=== PATIENT | female | born 1965 | race Caucasian/White ===

== ENCOUNTER 2017-02-03 22:38 | Emergency (ER) | payer SELFPAY ==
[~2017-02-03] VITALS: Ht 157.5 cm; Wt 59.0 kg
[~2017-02-03 22:38] MED LIST: ALBU17AE3 IH; AMLO5TAB4 PO; AMOX500C2 PO; AMOX500T2 PO; CEFU250T11 PO; DOXY100C2 PO; HYDR1TAB PO; NAPR220T76; POLY10DR OD; PRD20T PO; TRAM-21 PO; TRM50T PO; [UNRECOGNIZED DRUG - CODE]; [UNRECOGNIZED DRUG - REMARK]
--- NOTE | 2017-02-03 23:15 | ED Lower Extremity ---
General Chief Complaint: Lower Extremity Stated Complaint: L BIG TOE POSS INFECT Nursing Triage Note: Stated she came the other day to have back and toe looked at but left due to wait. States she believes she had a bug bite to left great toe that is now infected. States she has had MRSA in past. Also wants bump in middle of foot looked at. And is now saying that her lower back is keeping her from sleeping Nursing Sepsis Screen: No Definite Risk Source: patient Exam Limitations: no limitations History of Present Illness Time seen by provider: 23:08 Initial Comments Patient presents with a left great toe superficial red irritated infected spot that has come up over the last 2 days progressively gotten worse. She has had no fevers or chills or nausea or vomiting. She has no problems walking or numbness or tingling in her foot or toe. She states that ankle is a little swollen. She has had a MRSA infection in the past and is worried that she may be getting another one. She is been cleaning the site with alcohol and soap and water and applying new skin over it as well as a Band-Aid. Allergies and Home Medications Allergies Coded Allergies: sulfamethoxazole (Unverified Allergy, Mild, 05/10/09) trimethoprim (Unverified Allergy, Mild, 05/10/09) Uncoded Allergies: NKDA (Allergy, Mild, 03/27/09) Constitutional: No chills, No fever, No malaise Respiratory: No short of breath, No wheezing Cardiovascular: No chest pain, No syncope Musculoskeletal: No joint pain, No joint swelling, No muscle pain Skin: see HPI, lesions (scaly, pink, with thin discharge) Past Mygtmfx-Sxwcsq-Elfitw Hx Patient Social History Alcohol Use: Denies Use Recreational Drug Use: No Smoking Status: Current Everyday Smoker Recent Foreign Travel: No Contact w/Someone Who Travel: No Recent Infectious Disease Expo: No Recent Hopitalizations: Yes Immunizations Up To Date Tetanus Booster (TDap): Less than 5yrs Surgeries HX Surgeries: Yes (HH REPAIR,HYST) Surgeries: Hysterectomy Respiratory Hx Respiratory Disorders: No Cardiovascular Hx Cardiac Disorders: No Neurological Hx Neurological Disorders: Yes (TINGLING ARMS AND FINGERS OCC.) Reproductive System Hx Reproductive Disorders: Yes (MISCARRIAGE OF TWINS) Genitourinary Hx Genitourinary Disorders: No Gastrointestinal Hx Gastrointestinal Disorders: Yes Gastrointestinal Disorders: Irritable Bowel Musculoskeletal Hx 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) Endocrine Hx Endocrine Disorders: No HEENT HX ENT Disorders: No Cancer Hx Cancer: No Psychosocial Hx Psychiatric Problems: Yes Behavioral Health Disorders: Anxiety, Depression Blood Transfusions Hx Blood Disorders: No Physical Exam Vital Signs Vital Sign - Last 12Hours 02/03/17 22:45 Temp 97.9 Pulse 96 Resp 18 B/P (MAP) 156/107 Pulse Ox 96 Capillary Refill : Less Than 3 Seconds General Appearance: WD/WN, no apparent distress HEENT: PERRL/EOMI Cardiovascular: normal peripheral pulses, regular rate, rhythm, no edema Respiratory: lungs clear, normal breath sounds Feet: right foot non-tender, right foot normal inspection, right foot normal range of motion, right foot no evidence of injury, left foot infection (1 cm round superficial non-indurated no area of fluctuance without any drainage scaly lesion on the left toe consistent with a healing wound), left foot soft tissue tenderness Neurologic/Tendon: normal sensation, normal motor functions, normal tendon functions, responds to pain Neurologic/Psychiatric: alert, normal mood/affect, oriented x 3 Skin: normal color, warm/dry (no erythema, swelling or induration around the wound of the left great toe) Progress/Results/Core Measures Results/Orders Vital Signs/I&O Vital Sign - Last 12Hours 02/03/17 22:45 Temp 97.9 Pulse 96 Resp 18 B/P (MAP) 156/107 Pulse Ox 96 Blood Pressure Mean: 123 Progress Note : Time: 23:19 Progress Note The patient has a very superficial wound for the past 2 days for her left great toe without any induration or limitations or involvement of her joints or bony structure. Patient denies diabetes. She has been doing okay care for and proper care instructions have been given and she would be allowed to go home. If it gets worse then she may benefit from antibiotics and can follow up with her primary care physician or return here. Departure Impression Impression: Primary Impression: Skin lesion, infected Disposition: 01 HOME, SELF-CARE Condition: Stable Departure-Patient Inst. Decision time for Depature: 23:13 Referrals: [facility] (PCP) Primary Care Physician RADHA CHAVEZ (Family) Primary Care Physician Add. Discharge Instructions: You have a small lesion on the left great toe that may be a superficial skin infection but does not have any area under it consistent with an abscess. Therefore it will be amenable to cleaning twice daily with gentle soap and water. Do not apply alcohol hydroperoxide or iodine to the wound. You may dress the wound with Vaseline, a Band-Aid or leave it open to air. If the wound is getting worse, starts draining purulence, or there are red streaks up your foot or your pain is getting worse you should present to your primary care physician or return to the ER as is appropriate. No antibiotics will be necessary today. All discharge instructions reviewed with patient and/or family. Voiced understanding. Copy Copies To 1: SOTO JAVIER TITUS J Feb 03, 2017 23:15
[2017-02-03 23:17] VITALS: BP 156/107
== END 2017-02-03 23:17 | disposition home or self-care (01) ==
LOC: EDUNIT# 22:38 → ER 22:42
DX: L08.9 Local infection of the skin and subcutaneous tissue, unspecified (principal); M54.5 Low back pain; F17.210 Nicotine dependence, cigarettes, uncomplicated; Z86.14 Personal history of Methicillin resistant Staphylococcus aureus infection
CPT/HCPCS: 99283

== ENCOUNTER 2017-03-11 20:17 | Emergency (ER) | payer SELFPAY ==
[~2017-03-11] VITALS: Ht 157.5 cm; Wt 65.8 kg
[2017-03-11] MEDS ORDERED: NAPR220C11 PO (20:42)
[2017-03-11] MEDS ORDERED: amoxicillin (20:42)
[2017-03-11] MEDS ORDERED: RX-TRAMADOL 50 MG (ULTRAM) TAB PPK#4 PO STA (20:42)
[2017-03-11] MEDS ORDERED: cefTRIAXone 1 GM (ROCEPHIN) VIAL IM ONE (20:45)
[2017-03-11] MEDS ORDERED: LIDOCAINE 1% INJ 20 ML (XYLOCAINE) VIAL INJ ONE (20:45)
[2017-03-11] MEDS ORDERED: NAPR500T3 PO (20:46)
[2017-03-11] MEDS ORDERED: AMOX-358 PO (20:46)
--- NOTE | 2017-03-11 20:46 | ED EENT ---
History of Present Illness General Chief Complaint: Dental Problems/Pain Stated Complaint: L UPPER JAW TOOTH PAIN Nursing Triage Note: pt c/o left upper dental pain. scheduled for extraction 03/28/17. Source: patient Exam Limitations: no limitations History of Present Illness Time seen by provider: 20:43 Initial Comments To ER with left upper dental pain intermittently getting worse. Scheduled for dental extraction on 28 March. Not on antibiotics currently. Timing/Duration: gradual Severity: moderate Location: dental Associated Symptoms: tooth pain Allergies and Home Medications Allergies Coded Allergies: sulfamethoxazole (Unverified Allergy, Mild, 05/10/09) trimethoprim (Unverified Allergy, Mild, 05/10/09) Uncoded Allergies: NKDA (Allergy, Mild, 03/27/09) Home Medications Naproxen Sodium 220 Mg Capsule, 220 MG PO, (Reported) [amoxicillin] , (Reported) Review of Systems Constitutional: see HPI, No chills, fever Eyes: See HPI Ears: See HPI Nose: see HPI Mouth: see HPI, pain Throat: no symptoms reported Respiratory: no symptoms reported Cardiovascular: no symptoms reported Musculoskeletal: no symptoms reported Past Rcdpahv-Aqyjba-Czzfmf Hx Patient Social History Alcohol Use: Denies Use Recreational Drug Use: Yes Drug of Choice: weed Smoking Status: Current Everyday Smoker Recent Foreign Travel: No Contact w/Someone Who Travel: No Recent Infectious Disease Expo: No Recent Hopitalizations: Yes Immunizations Up To Date Tetanus Booster (TDap): Less than 5yrs Surgeries HX Surgeries: Yes (HH REPAIR,HYST) Surgeries: Hysterectomy Respiratory Hx Respiratory Disorders: No Cardiovascular Hx Cardiac Disorders: No Neurological Hx Neurological Disorders: Yes (TINGLING ARMS AND FINGERS OCC.) Reproductive System Hx Reproductive Disorders: Yes (MISCARRIAGE OF TWINS) 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 Genitourinary Hx Genitourinary Disorders: No Gastrointestinal Hx Gastrointestinal Disorders: Yes Gastrointestinal Disorders: Irritable Bowel Musculoskeletal Hx 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) Endocrine Hx Endocrine Disorders: No HEENT HX ENT Disorders: No Cancer Hx Cancer: No Psychosocial Hx Psychiatric Problems: Yes Behavioral Health Disorders: Anxiety, Depression Blood Transfusions Hx Blood Disorders: No Physical Exam Vital Signs Vital Sign - Last 12Hours 03/11/17 20:36 Temp 96.6 Pulse 103 Resp 18 Pulse Ox 97 O2 Delivery Room Air General Appearance: WD/WN, no apparent distress Eyes: bilateral eye EOMI, bilateral eye PERRL, bilateral eye normal inspection Ears: bilateral ear TM normal, bilateral ear auricle normal, bilateral ear canal normal Nose: normal inspection, No active bleeding Mouth/Throat: dental tenderness, other (there is some slight swelling to the left side of the maxilla. No fluctuance or induration. No fluctuance to the buccal mucosa suggesting a drainable abscess.) Respiratory: no respiratory distress, no accessory muscle use Gastrointestinal: normal bowel sounds, non tender, soft Neurologic/Psychiatric: alert, normal mood/affect, oriented x 3 Progress/Results/Core Measures Results/Orders My Orders Orders - VALENTIN ACEVEDO APRN Ceftriaxone Injection (Rocephin Injectio (03/11/17 20:45) Rx-Tramadol Hcl (Rx-Ultram) (03/11/17 20:42) Lidocaine 1% Injection (Xylocaine 1% Inj (03/11/17 20:45) Vital Signs/I&O Vital Sign - Last 12Hours 03/11/17 20:36 Temp 96.6 Pulse 103 Resp 18 B/P (MAP) Pulse Ox 97 O2 Delivery Room Air Departure Impression Impression: Primary Impression: Dental caries Disposition: 01 HOME, SELF-CARE Condition: Stable Departure-Patient Inst. Decision time for Depature: 20:44 Referrals: [facility] (PCP) Primary Care Physician RADHA CHAVEZ (Family) Primary Care Physician Patient Instructions: Dental Pain (DC) Add. Discharge Instructions: 1. Antibiotics as directed 2. Return to ER for any concern 3. All discharge instructions reviewed with patient and/or family. Voiced understanding. Scripts Naproxen (Naproxen) 500 Mg Tablet 500 MG PO BID Y for PAIN-MODERATE, #30 TAB Prov: VALENTIN ACEVEDO APRN 03/11/17 Amoxicillin/Potassium Clav (Augmentin 875-125 Tablet) 1 Each Tablet 1 EACH PO BID, #20 TAB Prov: VALENTIN ACEVEDO APRN 03/11/17 VALENTIN ACEVEDO APRN March 11, 2017 20:46
== END 2017-03-11 21:14 | disposition home or self-care (01) ==
LOC: EDUNIT# 20:17 → ER 20:20
DX: K02.9 Dental caries, unspecified (principal); F17.210 Nicotine dependence, cigarettes, uncomplicated
CPT/HCPCS: 96372; 99281

== ENCOUNTER 2017-04-02 11:50 | Emergency (ER) | payer SELFPAY ==
[~2017-04-02] VITALS: Ht 157.5 cm; Wt 65.8 kg
[~2017-04-02 11:50] MED LIST changes: +AMOX-358 PO; +NAPR220C11 PO; +NAPR500T3 PO; +amoxicillin
--- NOTE | 2017-04-02 13:13 | Diagnostic Imaging Report ---
Three views of the left shoulder. INDICATION: Injury. FINDINGS: There is no fracture, dislocation or radiopaque foreign body. Mild degenerative change with superior osteophytes is seen at the acromioclavicular joint. Minimal inferior spurring at the glenohumeral joint is seen. IMPRESSION: Minimal degenerative changes. No fracture seen. Dictated by: Dictated on workstation # [id number]
--- NOTE | 2017-04-02 13:23 | Diagnostic Imaging Report ---
EXAMINATION: Two views of the left clavicle. INDICATION: Injury. FINDINGS: No fracture or dislocation is seen. No radiopaque foreign body. IMPRESSION: No fracture seen. Dictated by: Dictated on workstation # [id number]
[2017-04-02] MEDS ORDERED: PRD20T PO (13:45)
--- NOTE | 2017-04-02 13:46 | ED Upper Extremity ---
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 Limm-xxe-mwrxmgf medications have not helped her much. Pain started after lifting a lawnmower into the back of a car about 2 weeks ago. She denies any blunt trauma to the shoulder. Allergies and Home Medications Allergies Coded Allergies: sulfamethoxazole (Unverified Allergy, Mild, 05/10/09) trimethoprim (Unverified Allergy, Mild, 05/10/09) Uncoded Allergies: NKDA (Allergy, Mild, 03/27/09) Home Medications Prednisone 20 Mg Tab, 20 MG PO DAILY, #4 Prescribed by: ARIA CAMARGO on 04/02/17 1345 Constitutional: no symptoms reported EENTM: no symptoms reported Respiratory: no symptoms reported Cardiovascular: no symptoms reported Gastrointestinal: no symptoms reported Genitourinary: no symptoms reported : No Musculoskeletal: see HPI Skin: no symptoms reported Psychiatric/Neurological: No Symptoms Reported Past Xmmjhtz-Ahiupc-Mgqkbg Hx Patient Social History Alcohol Use: Denies Use Recreational Drug Use: Yes Drug of Choice: thc Smoking Status: Current Everyday Smoker Recent Foreign Travel: No Contact w/Someone Who Travel: No Recent Infectious Disease Expo: No Recent Hopitalizations: No Immunizations Up To Date Tetanus Booster (TDap): Less than 5yrs Surgeries HX Surgeries: Yes (HH REPAIR,HYST) Surgeries: Hysterectomy Respiratory Hx Respiratory Disorders: No Cardiovascular Hx Cardiac Disorders: Yes Cardiac Disorders: Hypertension Neurological Hx Neurological Disorders: Yes (TINGLING ARMS AND FINGERS OCC.) Reproductive System Hx Reproductive Disorders: Yes (MISCARRIAGE OF TWINS) 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 Genitourinary Hx Genitourinary Disorders: No Gastrointestinal Hx Gastrointestinal Disorders: Yes Gastrointestinal Disorders: Irritable Bowel Musculoskeletal Hx 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) Endocrine Hx Endocrine Disorders: No HEENT HX ENT Disorders: No Cancer Hx Cancer: No Psychosocial Hx Psychiatric Problems: Yes Behavioral Health Disorders: Anxiety, Depression Blood Transfusions Hx Blood Disorders: No Physical Exam Vital Signs Vital Sign - Last 12Hours 04/02/17 11:57 Temp 97.4 Pulse 89 Resp 16 B/P (MAP) 163/121 Pulse Ox 99 O2 Delivery Room Air Capillary Refill : Less Than 3 Seconds General Appearance: WD/WN, mild distress (tearful) HEENT: PERRL/EOMI, normal ENT inspection Cardiovascular: regular rate, rhythm, no edema, no murmur Respiratory: lungs clear, normal breath sounds, no respiratory distress, no accessory muscle use Back: normal inspection Shoulder: limited ROM (Limited abduction) Elbow/Forearm: normal inspection, non-tender, no evidence of injury, normal ROM , Left Wrist: Yes normal inspection, Yes non-tender, Yes no evidence of injury, Yes normal ROM Hand: normal inspection, non-tender, no evidence of injury, normal ROM 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 Patient was offered a brief course of steroids. She was advised to follow-up with her primary care provider and/or an orthopedist as soft tissue injury was suspected. Further evaluation with MRI may be necessary. Diagnostic Imaging Diagonstic Imaging: Xray Plain Films/CT/US/NM/MRI: other (left clavicle) Comments x-rays reviewed by me and report reviewed. See report below: NAME: MICKIE NG [facility] REC#: [id number] PT STATUS: DEP ER : 1965 PHYSICIAN: ARIA DOAN MD ADMIT DATE: 04/02/17/ER Signed Date of Exam: 04/02/17 CLAVICLE, LEFT EXAMINATION: Two views of the left clavicle. INDICATION: Injury. FINDINGS: No fracture or dislocation is seen. No radiopaque foreign body. IMPRESSION: No fracture seen. Dictated by: Dictated on workstation # [id number] Dict: 04/02/17 1308 Trans: 04/02/17 1348 Interpreted by: MELITON GUARDADO MD Electronically signed by: MELITON GUARDADO MD 04/02/17 1348 Diagonstic Imaging: Xray Plain Films/CT/US/NM/MRI: other (left shoulder) Comments left shoulder x-ray viewed by me and report reviewed. See report below: NAME: MICKIE NG [facility] REC#: [id number] PT STATUS: DEP ER : 1965 PHYSICIAN: ARIA DOAN MD ADMIT DATE: 04/02/17/ER Signed Date of Exam: 04/02/17 SHOULDER, LEFT, 3 VIEWS Three views of the left shoulder. INDICATION: Injury. FINDINGS: There is no fracture, dislocation or radiopaque foreign body. Mild degenerative change with superior osteophytes is seen at the acromioclavicular joint. Minimal inferior spurring at the glenohumeral joint is seen. IMPRESSION: Minimal degenerative changes. No fracture seen. Dictated by: Dictated on workstation # [id number] Dict: 04/02/17 1309 Trans: 04/02/17 1428 Interpreted by: MELITON GUARDADO MD Electronically signed by: MELITON GUARDADO MD 04/02/17 1428 Departure Impression Impression: Primary Impression: Injury of left shoulder Qualified Codes: S49.92XA - Unspecified injury of left shoulder and upper arm , initial encounter Disposition: 01 HOME, SELF-CARE Condition: Improved Departure-Patient Inst. Decision time for Depature: 13:35 Referrals: [facility] (PCP/Family) Primary Care Physician Patient Instructions: NO INSTRUCTIONS GIVEN Add. Discharge Instructions: You may take ibuprofen up to 600 mg every 6 hours as needed for pain. Add Tylenol (acetaminophen) up to 1000 mg every 6 hours as needed for additional pain relief. Gradually increase level of activity as pain allows. With your primary care provider within the next week. You may need MRI of the shoulder to evaluate for rotator cuff injury and/or referral to an orthopedist. Return to the emergency room if symptoms worsen. Take prednisone and ibuprofen with food or milk to avoid irritation of the stomach. All discharge instructions reviewed with patient and/or family. Voiced understanding. Scripts Prednisone (Prednisone) 20 Mg Tab 20 MG PO DAILY, #4 TAB Prov: ARIA DOAN MD 04/02/17 ARIA DOAN MD Apr 02, 2017 13:45
[2017-04-02 13:49] VITALS: BP 163/121
== END 2017-04-02 13:48 | disposition home or self-care (01) ==
LOC: EDUNIT# 11:50 → ER 11:53
DX: S49.92XA Unspecified injury of left shoulder and upper arm, initial encounter (principal); I10 Essential (primary) hypertension; F17.200 Nicotine dependence, unspecified, uncomplicated; X50.0XXA Overexertion from strenuous movement or load, initial encounter
CPT/HCPCS: 73000; 73030; 99282

== ENCOUNTER 2017-11-03 17:08 | Emergency (ER) | payer SELFPAY ==
[~2017-11-03 17:08] MED LIST changes: -NAPR500T3 PO; +NAPR500T4 PO
--- OUTSIDE RECORDS SUMMARY | 2017-11-03 17:14 | XMS REPORT | Continuity of Care Document ---
Author Author [facility] Address Unknown Phone Unavailable Allergies Active Description Code Type Severity Reaction Onset Reported/Identified Relationship to Patient Clinical Status Yes No Known Drug Allergies [id number] Drug Allergy Mild N/A 02/18/2009 Yes NKDA NKDA Mild N/ A 03/27/2009 Yes sulfamethoxazole [id number] Drug Allergy Mild N/A 05/10/2009 Yes trimethoprim [id number] Drug Allergy Mild N/A 05/10/2009 Medications There is no data. Problems Date Dx Coded Attending Type Code Diagnosis Diagnosed By 04/27/2008 HEIDI GARCIA APRN 724.2 PAIN LOW BACK 04/27/2008 ELANA BENEDICT APRN 724.2 PAIN LOW BACK 04/27/2008 SOTO JAVIER DO 724.2 PAIN LOW BACK 05/14/2008 HEIDI GARCIA APRN 739.4 NONALLOPATHIC LESIONS OF SACRAL REGION NOT ELSEWHERE CLASSIFIED 05/14/2008 ELANA BENEDICT APRN 739.4 NONALLOPATHIC LESIONS OF SACRAL REGION NOT ELSEWHERE CLASSIFIED 05/14/2008 SOTO JAVIER DO 739.4 NONALLOPATHIC LESIONS OF SACRAL REGION NOT ELSEWHERE CLASSIFIED 09/09/2008 HEIDI GARCIA APRN R 372.30 CONJUNCTIVITIS UNSPECIFIED 09/09/2008 ELANA BENEDICT APRN 372.30 CONJUNCTIVITIS UNSPECIFIED 09/09/2008 SOTO JAVIER DO 372.30 CONJUNCTIVITIS UNSPECIFIED 11/29/2009 HEIDI GARCIA APRN 719.43 COMPRESSION ARTHRALGIA - ULNA / RADIUS / WRIST 11/29/2009 ELANA BENEDICT APRN 719.43 COMPRESSION ARTHRALGIA - ULNA / RADIUS / WRIST 11/29/2009 SOTO JAVIER DO 719.43 COMPRESSION ARTHRALGIA - ULNA / RADIUS / WRIST 12/15/2009 HEIDI GARCIA APRN 309.0 AD ADJ D/O W DEPRESSED 12/15/2009 ELANA BENEDICT APRN L 309.0 AD ADJ D/O W DEPRESSED 12/15/2009 SOTO JAVIER DO K 309.0 AD ADJ D/O W DEPRESSED 01/09/2010 HEIDI GARCIA APRN R 305.20 SA CANNABIS ABUSE 01/09/2010 KARTIKELANA Nguyen APRN L 305.20 SA CANNABIS ABUSE 01/09/2010 SOTO JAVIER DO K 305.20 SA CANNABIS ABUSE 04/02/2010 Ot 845.00 04/02/2010 Ot 845.10 04/02/2010 Ot 959.7 04/02/2010 Ot E000.8 04/02/2010 Ot E030 04/02/2010 Ot E849.6 04/02/2010 Ot E888.9 04/11/2010 HEIDI GARCIA APRN R 719.47 PAIN IN JOINT INVOLVING ANKLE AND FOOT 04/11/2010 ELANA BENEDICT APRN L 719.47 PAIN IN JOINT INVOLVING ANKLE AND FOOT 04/11/2010 SOTO JAVIER DO 719.47 PAIN IN JOINT INVOLVING ANKLE AND FOOT 04/19/2010 Ot 462 04/19/2010 Ot 723.1 04/19/2010 Ot 723.5 11/04/2010 HEIDI GARCIA APRN R 616.10 VAGINITIS VULVOVAGINITIS UNSPECIFIED 11/04/2010 HEIDI GARCIA APRN R 724.5 BACK PAIN, GENERAL 11/04/2010 HEIDI GARCIA APRN R 788.41 URINARY FREQUENCY 11/04/2010 ELANA BENEDICT APRN L 616.10 VAGINITIS VULVOVAGINITIS UNSPECIFIED 11/04/2010 ELANA BENEDICT APRN L 724.5 BACK PAIN, GENERAL 11/04/2010 MÓNICA BENEDICT APRNA L 788.41 URINARY FREQUENCY 11/04/2010 SOTO JAVIER DO K 616.10 VAGINITIS VULVOVAGINITIS UNSPECIFIED 11/04/2010 SOTO JAVIER DO K 724.5 BACK PAIN, GENERAL 11/04/2010 SOTO JAVIRE DO K 788.41 URINARY FREQUENCY 11/28/2010 HEIDI GARCIA APRN R 131.01 VAGINITIS TRICHOMONAS VAGINALIS 11/28/2010 JOSE MOULTONCABRERA RamirezIA R V65.45 STD COUNSELING 11/28/2010 JOSE MOULTONCABRERA RamirezIA R V74.5 STD SCREEN 11/28/2010 MARICHUY GAMAELANA L 131.01 VAGINITIS TRICHOMONAS VAGINALIS 11/28/2010 MARICHUY GAMA ELANA L V65.45 STD COUNSELING 11/28/2010 MARICHUY GAMAMÓNICAA L V74.5 STD SCREEN 11/28/2010 JAVIER DO SOTO K 131.01 VAGINITIS TRICHOMONAS VAGINALIS 11/28/2010 JAVIER DO, SOTO K V65.45 STD COUNSELING 11/28/2010 JAVIER DO SOTO K V74.5 STD SCREEN 12/04/2010 GARCIA SUGAR LABORATORY ASSISTANTHEIDI Ramirez R 787.01 NAUSEA WITH VOMITING 12/04/2010 MARICHUY GAMAMÓNICAA L 787.01 NAUSEA WITH VOMITING 12/04/2010 CONCEPCION VILLANUEVA SOTO K 787.01 NAUSEA WITH VOMITING 07/05/2012 Ot 462 ACUTE PHARYNGITIS 07/05/2012 Ot 473.9 CHRONIC SINUSITIS NOS 07/05/2012 Ot 723.1 CERVICALGIA 04/26/2014 GARCIA SUGAR LABORATORY ASSISTANTCABRERA RamirezIA R 305.1 TOBACCO ABUSE 04/26/2014 JOSE SUGAR LABORATORY ASSISTANTCABRERA RamirezIA R 491.21 BRONCHITIS AECB 04/26/2014 GARCIA SUGAR LABORATORY ASSISTANTCABRERA RamirezIA R 578.1 HEMATOCHEZIA 04/26/2014 MARICHUY MOULTONMÓNICA RamirezA L 305.1 TOBACCO ABUSE 04/26/2014 MARICHUY MOULTONMÓNICA RamirezA L 491.21 BRONCHITIS AECB 04/26/2014 MARICHUY MOULTONMÓNICA RamirezA L 578.1 HEMATOCHEZIA 04/26/2014 JAVIER DO, SOTO K 305.1 TOBACCO ABUSE 04/26/2014 JAVIER DO, SOTO K 491.21 BRONCHITIS AECB 04/26/2014 JAVIER DO, SOTO K 578.1 HEMATOCHEZIA 05/19/2014 MARICHUY MOULTONMÓNICA RamirezA L 272.4 OTHER AND UNSPECIFIED HYPERLIPIDEMIA 05/19/2014 MARICHUY MOULTONMÓNICA RamirezA L 300.4 DYSTHYMIC DISORDER 05/19/2014 JAVIER DO, SOTO K 272.4 OTHER AND UNSPECIFIED HYPERLIPIDEMIA 05/19/2014 JAVIER DO SOTO K 300.4 DYSTHYMIC DISORDER 06/24/2014 SOTO JAVIER DO K 381.01 ACUTE SEROUS OTITIS MEDIA 06/24/2014 CONCEPCION VILLANUEVA SOTO K 461.9 SINUSITIS ACUTE 06/24/2014 CONCEPCION VILLANUEVA SOTO K 780.52 INSOMNIA UNSPECIFIED 09/07/2015 FEDERICO YUNG MD Ot F17.210 NICOTINE DEPENDENCE, CIGARETTES, UNCOMPL 09/07/2015 DILSHAD NAVARRO, FEDERICO Hogue Ot I88.9 NONSPECIFIC LYMPHADENITIS, UNSPECIFIED 09/07/2015 FEDERICO YUNG MD Ot J02.9 ACUTE PHARYNGITIS, UNSPECIFIED 09/07/2015 FEDERICO YUNG MD Ot M77.12 LATERAL EPICONDYLITIS, LEFT ELBOW 06/21/2016 Ot 682.2 02/03/2017 DAPHNE CHANCE MD Ot F17.210 NICOTINE DEPENDENCE, CIGARETTES, UNCOMPL 02/03/2017 DAPHNE CHANCE MD Ot L08.9 LOCAL INFECTION OF THE SKIN AND SUBCUTAN 02/03/2017 DAPHNE CHANCE MD Ot M54.5 LOW BACK PAIN 02/03/2017 DAPHNE CHANCE MD Ot Z86.14 PERSONAL HISTORY OF METHICILLIN RESIS ST 02/05/2017 DAPHNE CHANCE MD Ot F17.210 NICOTINE DEPENDENCE, CIGARETTES, UNCOMPL 02/05/2017 DAPHNE CHANCE MD Ot L08.9 LOCAL INFECTION OF THE SKIN AND SUBCUTAN 02/05/2017 DAPHNE CHANCE MD Ot M54.5 LOW BACK PAIN 02/05/2017 DAPHNE CHANCE MD Ot Z86.14 PERSONAL HISTORY OF METHICILLIN RESIS ST 03/11/2017 VALENTIN ACEVEDO APRN Ot F17.210 NICOTINE DEPENDENCE, CIGARETTES, UNCOMPL 03/11/2017 VALENTIN ACEVEDO APRN Ot K02.9 DENTAL CARIES, UNSPECIFIED 03/11/2017 VALENTIN ACEVEDO APRN Ot K08.9 DISORDER OF TEETH AND SUPPORTING STRUCTU 04/05/2017 OLIMPIA NAVARRO, ARIA Bhatt Ot F17.200 NICOTINE DEPENDENCE, UNSPECIFIED, UNCOMP 04/05/2017 ARIA DOAN MD Ot I10 ESSENTIAL (PRIMARY) HYPERTENSION 04/05/2017 ARIA DOAN MD Ot M25.512 PAIN IN LEFT SHOULDER 04/05/2017 OLIMPIA NAVARRO, ARIA Bhatt Ot S49.92XA UNSP INJURY OF LEFT SHOULDER AND UPPER A 04/05/2017 OLIMPIA NAVARRO, ARIA Bhatt Ot X50.0XXA OVEREXERTION FROM STRENUOUS MOVEMENT OR 10/21/2017 Ot 682.2 Procedures Code [place] [address] HEMOCCULT 04/26/2014 54440 ROUTINE VENIPUNCTURE 04/26/2014 53226 H PYLORI (IN-HOUSE) 04/26/2014 92563 CMP 04/26/2014 58462 LIPID PANEL 04/26/2014 22172 TSH 04/26/2014 64891 CBC 04/26/2014 Results There is no data. Encounters ACCT No. Visit Date/Time Discharge Status Pt. Type Provider Facility Loc./Unit Complaint [id number] 06/24/2014 09:44:00 06/24/2014 23:59:59 CLS Outpatient CONCEPCION SOTO VILLANUEVA [id number] 05/19/2014 13:55:00 05/19/2014 23:59:59 CLS Outpatient ELANA BENEDICT APRN [id number] 04/26/2014 13:16:00 04/26/2014 23:59:59 CLS Outpatient HEIDI GARCIA APRN R [id number] 04/02/2017 11:53:00 04/02/2017 13:48:00 DIS Outpatient OLIMPIA NAVARRO, ARIA Bhatt [facility] ER LEFT SHOULDER PAIN [id number] 03/11/2017 20:20:00 03/11/2017 21:14:00 DIS Emergency VALENTIN ACEVEDO SUGAR LABORATORY ASSISTANT [facility] ER L UPPER JAW TOOTH PAIN [id number] 02/03/2017 22:42:00 02/03/2017 23:17:00 DIS Emergency DAPHNE CHANCE MD [facility] ER L BIG TOE POSS INFECT [id number] 02/01/2017 23:17:00 02/01/2017 23:17:00 CAN Preadmit LOREE NAVARRO, EDWIN [place]a [facility] ER BACK RT HIP PAIN, MOVED 4 DAYS AGO [id number] 09/07/2015 08:00:00 09/07/2015 09:49:00 DIS Emergency DILSHAD NAVARRO, FEDERICO Hogue [facility] ER JAW SWOLLEN LEFT ELBOW PAIN [id number] 11/03/2017 17:10:00 ACT Emergency OLIMPIA NAVARRO, ARIA Bhatt [facility] ER ELEV BS 300-600/HEADACHE [id number] 07/05/2012 14:00:00 Document Registration [id number] 04/19/2010 05:36:00 Document Registration [id number] 04/02/2010 17:39:00 Document Registration [id number] 05/12/2009 05:44:00 Document Registration
--- OUTSIDE RECORDS SUMMARY | 2017-11-03 17:14 | XMS REPORT ---
Author Author DONI FINK [facility] Address Unknown Care Team Providers Care Golf Cart Assembler Name Role Phone ORVILLESEEMA DONI Unavailable PROBLEMS Unknown Problems ALLERGIES Substance Reaction Event Type Date Status Latex Unknown Drug Allergy February, Active Sulfacetamide Sod-Sulfur Unknown Drug Allergy February, Active Aspirin Unknown Drug Allergy February, Active SOCIAL HISTORY Never Assessed PLAN OF CARE Activity Details Follow Up 1 Week Reason:TE #14 and #28 Take PA's of Both VITAL SIGNS Blood pressure systolic 145 mmHg 2017-03-12 Blood pressure diastolic 106 mmHg 2017-03-12 MEDICATIONS Medication Instructions Dosage Frequency Start Date End Date Duration Status Tramadol HCl Active Naproxen Active RESULTS No Results PROCEDURES Procedure Date Ordered Result Body Site LTD ORAL EVALUATION - PROBLEM FOCUS March 12, 2017 IMMUNIZATIONS No Known Immunizations MEDICAL (GENERAL) HISTORY Type Description Date Medical History High blood pressure Medical History bronchitis Medical History prednisone Medical History arthritis Medical History back trouble Surgical History hysterectomy 1999 Surgical History hernia repair Surgical History ulcers Hospitalization History MRSA 2009 Hospitalization History surgeries
== END 2017-11-03 19:09 | disposition left against medical advice (07) ==
LOC: EDUNIT# 17:08 → ER 17:10
DX: R03.0 Elevated blood-pressure reading, without diagnosis of hypertension (principal); R51 Headache

== ENCOUNTER 2019-10-21 10:28 | Emergency (ER) | payer SELFPAY ==
[~2019-10-21] VITALS: Ht 157.5 cm; Wt 70.3 kg
[~2019-10-21 10:28] MED LIST changes: +NAPR-915 PO; -NAPR500T4 PO
--- NOTE | 2019-10-21 11:52 | ED Cough/URI ---
General Chief Complaint: Cough/Cold/Flu Symptoms Stated Complaint: CONGESTION Nursing Triage Note: PT AMBULATE TO TRIAGE WITHOUT DIFFICULTY WITH C/O COUGH AND CONGESTION X1 WEEK. PT REPORTS BEING SEEN AT [place] ED AND WAS GIVEN ABX FOR A "CHEST INFECTION" AND TOLD TO TAKE MUCINEX. PT STATES SHE DOES NOT FEEL BETTER. PT STATES SHE HAS NOT CONTACTED PCP AND THAT SHE WAS GOING TO GO TO THE CLINIC TODAY AND CAME TO ED INSTEAD. Sepsis Screen: No Definite Risk Source: patient, spouse Exam Limitations: no limitations History of Present Illness Date Seen by Provider: Oct 21, 2019 Time Seen by Provider: 11:51 Initial Comments 54-year-old female patient presents with complaints of 2 week onset of cough and congestion. Patient was seen at [facility] ED on 08/12/19 for reports of a "chest infection" and was given antibiotics. She was told to use [id number] Mucinex for symptomatic relief. Patient denies improvement in symptoms. Denies taking Mucinex today. She does report using her albuterol nebulizer and inhalers at home "once or twice" with improvement in symptoms. She denies contacting her primary care provider for symptoms. Timing/Duration: constant, week (2 wks) Severity/Quality: productive cough Prior Episodes/Possible Cause: occasional episodes Modifying Factors: Improves With Albuterol Inhaler, Improves With Albuterol Nebulizer; Worse With Coughing Allergies and Home Medications Allergies Coded Allergies: sulfamethoxazole (Unverified Allergy, Mild, 05/10/09) trimethoprim (Unverified Allergy, Mild, 05/10/09) Home Medications Prednisone 20 Mg Tab, 20 MG PO DAILY Prescribed by: ARIA CAMARGO on 04/02/17 1345 Patient Home Medication List Home Medication List Reviewed: Yes Review of Systems Review of Systems Constitutional: No chills, No diaphoresis, No fever; malaise EENTM: nose congestion (green nasal drainage), throat pain; No ear pain, No hoarseness, No throat swelling Respiratory: see HPI, cough; No hemoptysis, No orthopnea; phlegm, short of breath; No stridor; wheezing Cardiovascular: No chest pain, No edema, No palpitations Gastrointestinal: No abdominal pain, No constipation, No diarrhea, No loss of appetite, No nausea, No vomiting Genitourinary: no symptoms reported Musculoskeletal: no symptoms reported Skin: no symptoms reported Psychiatric/Neurological: Headache; Denies Numbness, Denies Paresthesia, Denies Tingling Immunological/Allergic: no symptoms reported All Other Systems Reviewed Negative Unless Noted: Yes (Negative excepted noted.) Past Rnybjnb-Yryvxa-Nwarbg Hx Past Med/Social Hx: Reviewed and Corrections made Patient Social History Alcohol Use: Denies Use Recreational Drug Use: No Drug of Choice: thc Smoking Status: Current Everyday Smoker Type Used: Cigars 2nd Hand Smoke Exposure: Yes Recent Foreign Travel: No Contact w/Someone Who Travel: No Recent Infectious Disease Expo: No Recent Hopitalizations: No Physical Abuse: No Sexual Abuse: No Mistreated: No Fear: No Immunizations Up To Date Tetanus Booster (TDap): Less than 5yrs Past Medical History Surgeries: Yes (HH REPAIR,HYST) Hysterectomy Respiratory: Yes COPD Cardiac: Yes Hypertension Neurological: Yes (TINGLING ARMS AND FINGERS OCC.) Reproductive Disorders: Yes (MISCARRIAGE OF TWINS) 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 oz. 65.323378il; 28.00 BMI Method:Stated General Appearance: WD/WN, no apparent distress HEENT: PERRL/EOMI, TMs normal, pharyngeal erythema; No other (no exudates, ulcerations, swelling, or drainage. Positive nasal congestion without drainage. No sinus tenderness noted.) Neck: non-tender, supple, normal inspection Respiratory: no respiratory distress, no accessory muscle use, rhonchi, wheezing Cardiovascular: normal peripheral pulses, regular rate, rhythm, no edema, no gallop, no murmur Gastrointestinal: normal bowel sounds, non tender, soft Extremities: no pedal edema, no calf tenderness, normal capillary refill Neurologic/Psychiatric: alert, normal mood/affect, oriented x 3 Skin: normal color, warm/dry Progress/Results/Core Measures Suspected Sepsis Recent Fever Within 48 Hours: No Infection Criteria Present: None New/Unexplained Altered Menta: No Sepsis Screen: No Definite Risk SIRS Temperature: Pulse: 87 Respiratory Rate: 17 Blood Pressure 161 /117 Mean: 132 Results/Orders Micro Results Microbiology 10/21/19 Influenza Types A,B Antigen (LAURENCE) - Final, Complete My Orders Orders - JOSE MARTIN HAMILTON Chest Pa/Lat (2 View) (10/21/19 11:46) Influenza A And B Antigens (10/21/19 11:46) Acetaminophen Tablet (Tylenol Tablet) (10/21/19 12:00) Albuterol/Ipra Inhalation Soln (Duoneb I (10/21/19 12:00) Svn Small Volume Nebulizer (10/21/19 12:00) Prednisone Tablet (Deltasone Tablet) (10/21/19 12:00) Benzonatate Capsule (Tessalon Perles) (10/21/19 12:00) Guaifenesin Tablet (Mucinex Tablet) (10/21/19 12:00) Medications Given in ED Current Medications Medications Dose Ordered Sig/Rodríguez Route Start Time Stop Time Status Last Admin Dose Admin Albuterol/ Ipratropium 3 ml ONCE ONCE INH 10/21/19 12:00 10/21/19 12:03 DC 10/21/19 12:45 3 ML Benzonatate 200 mg ONCE ONCE PO 10/21/19 12:00 10/21/19 12:03 DC 10/21/19 12:23 200 MG Guaifenesin 600 mg ONCE ONCE PO 10/21/19 12:00 10/21/19 12:03 DC 10/21/19 12:28 600 MG Prednisone 40 mg ONCE ONCE PO 10/21/19 12:00 10/21/19 12:03 DC 10/21/19 12:23 40 MG Vital Signs/I&O 10/21/19 10/21/19 10/21/19 11:20 11:20 12:46 Temp 36.8 Pulse 87 Resp 17 B/P (MAP) 161/117 (132) O2 Delivery Room Air Room Air Room Air Capillary Refill : Less Than 3 Seconds Blood Pressure Mean: 132 Diagnostic Imaging Diagonstic Imaging: Xray Plain Films/CT/US/NM/MRI: chest Comments Date of Exam:10/21/19 CHEST PA/LAT (2 VIEW) EXAMINATION: CHEST (PA AND LATERAL) CLINICAL INDICATION: 54-year-old female, cough, shortness of breath. COMPARISON: September 15, 2009. FINDINGS: Heart size and mediastinal contours are unremarkable. There is no identified pneumothorax. There is no pleural effusion. There is no identified focal airspace consolidation. There are small calcified pulmonary nodules bilaterally likely relating to sequela of prior granulomatous disease. IMPRESSION: 1. Small calcified pulmonary nodules bilaterally unchanged since 2008 most compatible with sequela of prior granulomatous disease. 2. No identified acute cardiopulmonary abnormality. Dictated on workstation # [id number] Reviewed: Reviewed by Me (radiology report reviewed by me) Departure Communication (Admissions) Patient seen and evaluated. Chest x-ray obtained showing to be negative for acute processes. Patient showed improved aeration with decreased wheezing in all lung sierra. No respiratory distress. Cardiovascular regular rate and rhythm. Proceed with discharge to home with follow-up as an outpatient with her PCP. Impression Primary Impression: Chronic bronchitis with acute exacerbation Disposition: HOME, SELF-CARE Condition: Improved Departure-Patient Inst. Decision time for Depature: 13:18 Ref[place]: [facility] [place] Primary Care Physician Patient Instructions: Acute Bronchitis, Adult (DC), Chronic Bronchitis (DC) Add. Discharge Instructions: All discharge instructions reviewed with patient and/or family. Voiced understanding. Medications as instructed. Tylenol Extra Strength [id number] as directed for pain if needed. Ibuprofen 600 mg by mouth every 6-8 hours as needed for pain or fever. Stay well hydrated. Rest. Over- the-counter Afrin nasal spray, saline nasal spray, and Mucinex for symptomatically relief. Return to the emergency department for worsened symptoms, increased shortness of breath, fever, chest pain, or any other concerns. Scripts Albuterol Sulfate (Albuterol Sulfate) 2.5 Mg/3 Ml Vial.neb 2.5 MG INH Q4H PRN for WHEEZING, #28 EA 0 Refills Prov: JOSE MARTIN HAMILTON PA 10/21/19 Minocycline HCl (Minocycline HCl) 100 Mg Capsule 100 MG PO BID, #14 CAP 0 Refills Prov: JOSE MARTIN HAMILTON PA 10/21/19 Benzonatate (TESSALON PERLES) 100 Mg Capsule 200 MG PO TID PRN for COUGH, #14 CAP 1 Refill Prov: JOSE MARTIN HAMILTON PA 10/21/19 Prednisone (Prednisone) 20 Mg Tab 40 MG PO DAILY, #8 TAB 0 Refills Prov: JOSE MARTIN HAMILTON PA 10/21/19 JOSE MARTIN HAMILTON Oct 21, 2019 11:52
[2019-10-21] MEDS ORDERED: ACETAMINOPHEN 500 MG TAB (TYLENOL) PO STA (12:00)
[2019-10-21] MEDS ORDERED: predniSONE 20 MG TAB PO ONE (12:00)
[2019-10-21] MEDS ORDERED: BENZONATATE 100 MG (TESSALON) CAPSULE PO ONE (12:00)
[2019-10-21] MEDS ORDERED: RT-ALBUTEROL/IPRATROPIUM 3 ML (DUONEB) VIAL INH ONE (12:00)
[2019-10-21] MEDS ORDERED: guaiFENesin (MUCINEX) 600 MG TAB PO ONE (12:00)
--- NOTE | 2019-10-21 12:54 | Diagnostic Imaging Report ---
EXAMINATION: CHEST (PA AND LATERAL) CLINICAL INDICATION: 54-year-old female, cough, shortness of breath. COMPARISON: September 15, 2009. FINDINGS: Heart size and mediastinal contours are unremarkable. There is no identified pneumothorax. There is no pleural effusion. There is no identified focal airspace consolidation. There are small calcified pulmonary nodules bilaterally likely relating to sequela of prior granulomatous disease. IMPRESSION: 1. Small calcified pulmonary nodules bilaterally unchanged since 2008 most compatible with sequela of prior granulomatous disease. 2. No identified acute cardiopulmonary abnormality. Dictated by: Dictated on workstation # [id number]
[2019-10-21] MEDS ORDERED: MINO100C2 PO (13:20)
[2019-10-21] MEDS ORDERED: BENZ100C18 PO (13:20)
[2019-10-21] MEDS ORDERED: PRD20T PO (13:20)
[2019-10-21] MEDS ORDERED: ALBU2.5V4 INH (13:20)
[2019-10-21 13:39] VITALS: BP 149/82
== END 2019-10-21 13:39 | disposition home or self-care (01) ==
LOC: EDUNIT# 10:28 → ER 10:29
DX: J44.9 Chronic obstructive pulmonary disease, unspecified (principal); I10 Essential (primary) hypertension; K58.9 Irritable bowel syndrome, unspecified; F41.9 Anxiety disorder, unspecified; F32.9 Major depressive disorder, single episode, unspecified; F17.290 Nicotine dependence, other tobacco product, uncomplicated; Z88.2 Allergy status to sulfonamides; Z88.1 Allergy status to other antibiotic agents; Z79.52 Long term (current) use of systemic steroids; Z90.710 Acquired absence of both cervix and uterus
CPT/HCPCS: 71046; 87804; 94640

== ENCOUNTER 2023-09-09 18:39 | Emergency (ER) | payer SELFPAY ==
[~2023-09-09] VITALS: Ht 157 cm; Wt 83.4 kg
[~2023-09-09 18:39] MED LIST changes: +ALBU2.5V4 INH; +BENZ100C18 PO; +MINO100C5 PO
[2023-09-09 19:00] VITALS: BP 159/111
--- NOTE | 2023-09-09 19:00 | ED EENT ---
History of Present Illness General Chief Complaint: Dental Problems/Pain Stated Complaint: DENTAL PAIN Source: patient Exam Limitations: no limitations History of Present Illness Date Seen by Provider: Sep 09, 2023 Time Seen by Provider: 19:00 Initial Comments Patient is a 57-year-old female who presents ED with left upper dental pain. She states she broke off a few of her upper teeth 1 month ago with eating. She had no pain at that time of the injury. She states she started having some pain and discomfort 2 days ago with redness swelling and drainage from the left upper teeth. She did report some swelling to the left-sided face but the swelling has improved. Has been taken Tylenol with management of the pain. She does report feeling feverish. She denies any vomiting, diarrhea, neck pain or swelling, headache or dizziness. She also has been using Anbesol, mouthwash, hydroperoxide with some improvement. Patient does not have a dentist. Allergies and Home Medications Allergies Coded Allergies: sulfamethoxazole (Unverified Allergy, Mild, 05/10/09) trimethoprim (Unverified Allergy, Mild, 05/10/09) Patient Home Medication List Home Medication List Reviewed: Yes Albuterol Sulfate (Albuterol Sulfate) 2.5 Mg/3 Ml Vial.neb, 2.5 MG INH Q4H PRN for WHEEZING Prescribed by: JOSE MARTIN HAMILTON on 10/21/19 1320 Benzonatate (Tessalon Perles) 100 Mg Capsule, 200 MG PO TID PRN for COUGH Prescribed by: JOSE MARTIN HAMILTON on 10/21/19 1320 Clindamycin HCl (Clindamycin HCl) 300 Mg Capsule, 300 MG PO QID Prescribed by: EBONY NAJERA on 09/09/23 190 Minocycline HCl (Minocycline HCl) 100 Mg Capsule, 100 MG PO BID Prescribed by: JOSE MARTIN HAMILTON on 10/21/19 1320 Prednisone (Prednisone) 20 Mg Tab, 20 MG PO DAILY Prescribed by: ARIA CAMARGO on 04/02/17 1345 Prednisone (Prednisone) 20 Mg Tab, 40 MG PO DAILY Prescribed by: JOSE MARTIN HAMILTON on 10/21/19 1320 Review of Systems Review of Systems Constitutional: No chills, No diaphoresis; fever; No malaise, No weakness Eyes: Denies Blurred Vision, Denies Drainage, Denies Decreased Acuity Ears: Denies Dizziness, Denies Pain Nose: denies clots, denies congestion, denies pain, denies bloody discharge Mouth: pain, swelling Throat: denies pain, denies swelling Respiratory: No cough, No dyspnea on exertion Cardiovascular: No chest pain Gastrointestinal: No abdominal pain, No diarrhea, No nausea, No vomiting Musculoskeletal: No back pain, No joint pain Skin: No change in color, No change in hair/nails All Other Systems Reviewed Negative Unless Noted: Yes Past Yhptsyj-Qeysec-Qgxanf Hx Immunizations Up To Date Tetanus Booster (TDap): Less than 5yrs Past Medical History Surgeries: Yes (HH REPAIR,HYST) Hysterectomy Respiratory: Yes COPD Cardiac: Yes Hypertension Neurological: Yes (TINGLING 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 oz. [id number]; 28.00 BMI Method:Stated General Appearance: WD/WN, no apparent distress Eyes: bilateral eye normal inspection, bilateral eye PERRL, bilateral eye EOMI Ears: bilateral ear auricle normal Nose: normal inspection Mouth/Throat: other (Extensive decay noted throughout. Gum swelling redness to the left upper teeth. No fluctuant mass. Mild swelling left side of face. 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 Gum swelling redness drainage from the left upper teeth. No obvious function of mass. Tenderness to palpate. Concerning that she is developing a periapical abscess. She may have had an abscess that did rupture as there does appear to be some purulent drainage. She refused anything for pain she is requesting antibiotic. Due to the extensive redness swelling and drainage we will start patient on clindamycin. She has no obvious facial swelling or redness on exam. She is slightly tachycardic. Afebrile. At this time we will start on clindamycin. Recommend following up with dental. If increased redness or swelling to return back to ED. Recommend probiotics. Impression Primary Impression: Pain, dental Disposition: HOME, SELF-CARE Condition: Stable Departure-Patient Inst. Decision time for Depature: 19:03 Referrals: [facility] (PCP/Family) Primary Care Physician Patient Instructions: Dental Pain Add. Discharge Instructions: Continue taking your Tylenol. Recommend taking clindamycin. Soft foods. If increased redness swelling or pain return back to ED. Recommend outpatient follow-up with dentist. Recommend probiotics. All discharge instructions reviewed with patient and/or family. Voiced understanding. Scripts Clindamycin HCl (Clindamycin HCl) 300 Mg Capsule 300 MG PO QID for 7 Days, #28 CAP Prov: WILBERT BABIN 09/09/23 WILBERT BABIN Sep 09, 2023 18:59
[2023-09-09] MEDS ORDERED: CLIN-144 PO (19:04)
[2023-09-09] MEDS: CLINDAMYCIN 150 MG CAPSULE PO STA (19:08)
[2023-09-09] MEDS: HYDROcodone/ACETAMINOPHEN 5 MG/325 MG TABLET PO ONE (19:16)
== END 2023-09-09 19:24 | disposition home or self-care (01) ==
LOC: EDUNIT# 18:39 → ER 18:41
DX: K08.89 Other specified disorders of teeth and supporting structures (principal); Z88.2 Allergy status to sulfonamides
CPT/HCPCS: 99283